=== PATIENT | female | born 1935 | race Caucasian/White ===

== ENCOUNTER 2017-12-13 14:57 | Emergency (ER) | payer MEDICARE ==
[~2017-12-13] VITALS: Ht 152.4 cm; Wt 59.0 kg
[2017-12-13 16:06] LABS: BASOPHILS ABSOLUTE AUTO 0.07 K/mm3 (0.00-0.23); BASOPHILS PERCENT AUTO 1 % (0-2); EOSINOPHILS PERCENT AUTO 3 % (0-6); Hematocrit 38.5 % (33.0-51.0); Hemoglobin 12.4 g/dL (11.5-16.0); IMMATURE GRAN ABSOLUTE AUTO 0.04 K/mm3 (0.00-0.10); IMMATURE GRAN PERCENT AUTO 1 % (0-1); LYMPHOCYTES ABSOLUTE AUTO 1.93 K/mm3 (0.84-5.20); LYMPHOCYTES PERCENT AUTO 25 % (21-46); MONOCYTES ABSOLUTE AUTO 0.52 K/mm3 (0.16-1.47); MONOCYTES PERCENT AUTO 7 % (4-13); Mean Corpuscular HGB 30.9 pg (26.0-34.0); Mean Corpuscular HGB Conc 32.2 g/dL (31.5-36.5); Mean Corpuscular Volume 96 fL (80-100); Mean Platelet Volume 9.8 fL (9.1-12.4); NEUTROPHILS ABSOLUTE AUTO 5.05 K/mm3 (1.96-9.15); NEUTROPHILS PERCENT AUTO 65 % (41-73); Platelet Count 251 K/mm3 (150-400); RDW Coefficient Variation 13.2 % (11.7-14.2); RDW Standard Deviation 46.8 fL (35.1-46.3); Red Blood Cell Count 4.01 M/mm3 (3.80-5.20); White Blood Cell Count 7.81 K/mm3 (4.00-11.30)
[2017-12-13 16:24] LABS: Alanine Aminotransfer (ALT/SGP 15 U/L (12-78); Albumin, Blood 3.5 g/dL (3.4-5.0); Alk Phos 72 U/L (50-136); Anion Gap 7 mmol/L (6-16); Aspartate Aminotrans (AST/SGOT 17 U/L (12-37); Bilirubin, Total 0.7 mg/dL (0.1-1.0); Blood Urea Nitrogen 15 mg/dL (8-24); Bun/Creatinine Ratio 20.9 (12.0-20.0); CO2, Blood 29 mmol/L (21-32); Chloride, Blood 104 mmol/L (98-108); Creatinine, Blood 0.72 mg/dL (0.40-1.00); Globulin, Blood 3.4 g/dL (2.2-4.0); Glomerular Filtration Rate >60 (60-); Glucose, Blood 138 mg/dL (70-99); Potassium, Blood 3.9 mmol/L (3.5-5.5); Sodium, Blood 140 mmol/L (136-145); Total Protein, Blood 6.9 g/dL (6.4-8.2)
[2017-12-13 17:07] LABS: Source, Urine Clean Catch
[2017-12-13 17:12] LABS: Appearance, Urine Hazy (Clear); Bilirubin, Urine Neg (Neg); Blood, Urine 3+ (Neg); Color, Urine Yellow (P-Yellow); Glucose Qualitative, Urine Neg (Neg); Ketones, Urine Neg (Neg); Leukocyte Esterase, Urine 2+ (Neg); Nitrite, Urine Neg (Neg); Protein, Urine 2+ (Neg); Urobilinogen, Urine NORM (Normal)
[2017-12-13 17:19] LABS: Bacteria Few /hpf; Red Blood Cells, Urine 0-2 /hpf (0-2); Squamous Epithelial Cells Mod /hpf (Few); White Blood Cells, Urine 0-2 /hpf (0-5)
[2017-12-13] MEDS ORDERED: TRAZ100 PO (17:52)
[2017-12-13] MEDS ORDERED: Hydrocodone-Ap1 EA23 PO (17:52)
== END 2017-12-13 19:56 | disposition home or self-care (01) ==
LOC: ER 14:57
PROVIDERS: Psychiatry & Neurology Psychiatry
DX: I10 Essential (primary) hypertension (principal); H61.21 Impacted cerumen, right ear; R51 Headache; G47.00 Insomnia, unspecified
CPT/HCPCS: 36415; 69210; 70450; 80053; 81001; 84443; 85025; 87086; 93005; 93010; 96374; 96375; 99284; J1170; J2405

== ENCOUNTER 2018-02-17 10:53 | Emergency (ER) | payer MEDICARE ==
[~2018-02-17] VITALS: Ht 149.9 cm; Wt 56.7 kg
[~2018-02-17 10:53] MED LIST: Hydrocodone-Ap1 EA23 PO; TRAZ100 PO
[2018-02-17] MEDS ORDERED: LATANOPROST2.5 ML (11:27)
[2018-02-17] MEDS ORDERED: TRAMADOL/APAP (11:29)
== END 2018-02-17 12:24 | disposition home or self-care (01) ==
LOC: ER 10:53
DX: M79.601 Pain in right arm (principal); Z79.899 Other long term (current) drug therapy; F03.90 Unspecified dementia, unspecified severity, without behavioral disturbance, psychotic disturbance, mood disturbance, and anxiety
CPT/HCPCS: 73060; 99283

== ENCOUNTER 2019-10-03 10:10 | Inpatient (IN) | payer MEDICARE, OTHER ==
[~2019-10-03] VITALS: Ht 157.5 cm; Wt 60.8 kg
[~2019-10-03 10:10] MED LIST changes: +TRAMADOL/APAP; -TRAZ100 PO
[2019-10-03 10:39] LABS: Source, Urine Catheter
[2019-10-03 10:42] LABS: Bilirubin, Urine Neg (Neg); Blood, Urine 2+ (Neg); Glucose Qualitative, Urine Neg (Neg); Ketones, Urine Neg (Neg); Leukocyte Esterase, Urine Neg (Neg); Nitrite, Urine Neg (Neg); Protein, Urine 2+ (Neg); Urobilinogen, Urine NORM (Normal)
[2019-10-03 10:49] LABS: BASOPHILS ABSOLUTE AUTO 0.06 K/mm3 (0.00-0.23); BASOPHILS PERCENT AUTO 1 % (0-2); EOSINOPHILS ABSOLUTE AUTO 0.03 K/mm3 (0.00-0.68); EOSINOPHILS PERCENT AUTO 0 % (0-6); Hematocrit 38.9 % (33.0-51.0); Hemoglobin 12.3 g/dL (11.5-16.0); IMMATURE GRAN ABSOLUTE AUTO 0.05 K/mm3 (0.00-0.10); IMMATURE GRAN PERCENT AUTO 1 % (0-1); LYMPHOCYTES ABSOLUTE AUTO 1.38 K/mm3 (0.84-5.20); LYMPHOCYTES PERCENT AUTO 14 % (21-46); MONOCYTES ABSOLUTE AUTO 0.62 K/mm3 (0.16-1.47); MONOCYTES PERCENT AUTO 6 % (4-13); Mean Corpuscular HGB 30.2 pg (26.0-34.0); Mean Corpuscular HGB Conc 31.6 g/dL (31.5-36.5); Mean Corpuscular Volume 96 fL (80-100); Mean Platelet Volume 9.9 fL (9.1-12.4); NEUTROPHILS ABSOLUTE AUTO 7.83 K/mm3 (1.96-9.15); NEUTROPHILS PERCENT AUTO 79 % (41-73); Platelet Count 260 K/mm3 (150-400); RDW Standard Deviation 45.4 fL (35.1-46.3); Red Blood Cell Count 4.07 M/mm3 (3.80-5.20); White Blood Cell Count 9.97 K/mm3 (4.00-11.30)
[2019-10-03 10:51] LABS: Appearance, Urine Hazy (Clear); Color, Urine Yellow (P-Yellow)
[2019-10-03 10:52] LABS: Bacteria Not Seen /hpf; Red Blood Cells, Urine 0-2 /hpf (0-2); Squamous Epithelial Cells Rare /hpf (Few); White Blood Cells, Urine Not Seen /hpf (0-5)
[2019-10-03 11:04] LABS: Bun/Creatinine Ratio 22.3 (12.0-20.0); Calcium, Blood 9.3 mg/dL (8.5-10.1); Creatinine, Blood 1.03 mg/dL (0.40-1.00); Potassium, Blood 4.5 mmol/L (3.5-5.5)
[2019-10-03] MEDS ORDERED: CELE200 PO (11:19)
[2019-10-03] MEDS ORDERED: TRAZ50 PO (12:39)
[2019-10-03] MEDS ORDERED: OLME20 PO (12:40)
[2019-10-03] MEDS ORDERED: LATANOPROST2.5 ML BOTHEYES (12:40)
[2019-10-03] MEDS ORDERED: Mobic15 MG PO (12:40)
[2019-10-03] MEDS ORDERED: Seroquel Xr50 MG PO (12:41)
[2019-10-03] MEDS ORDERED: MICROZIDE12.5 M1 PO (12:41)
[2019-10-03] MEDS ORDERED: QUET25 PO (12:41)
--- NOTE | 2019-10-03 15:29 | NUR ---
NEW ER ADMIT PT HAD INCIDENT @ HOME MULT DAYS AGO/FAMILY IN WHICH SHE HIT HER HEAD, CT HEAD REVEAL LRG AREA OF HEMMOHRAGE. @ THIS TIME SHE IS SOMEWHAT DROWSY, LIGHT SENSITIVE, CONSTANTLY HOLDING HEAD, APPEARS PAINFUL. APHASIC, SPEECH GARBLED, NONSENSICAL. DR OLMEDO IN TO SEE HER & SPEAK W [place] FAMILY. ORDER ROXANOL, 10MG GIVEN, PT RESTING QUIETLY @ THIS TIME WITH COVERS OVER HER HEAD. DR OLMEDO STATE WILL SPEAK WITH OTHER FAMILY TO DETERMINE TX, STATE POSSIBLE COMFORT CARE. ORDER NPO w SM [facility] ICE IF PT REQUESTS. CALL PLACED TO PALLIATIVE CARE. PASTORAL CARE STOP TO CHECK ON PT/FAMILY. WILL CONTINUE TO MX.
--- NOTE | 2019-10-03 16:26 | NUR ---
Spiritual Care intial note: Called to ED to provide calm presence and dependency counselor to pt's dtr and son. Dtr, Clare, is very distraught and blames herself for talking pt shopping three days ago when injury occurred. My estimation is Clare's guilt is a manifestation of her grief, and in this regard is normal and appropriate. Son is more calm, but also tearful. Both responded well to calm asurance of care, affirmation of comfort care decision, and prayer. Pt is very sleepy. When she awakens, her speech is garbled. More family to arrive throughout the afternoon. I will continue to follow.
--- NOTE | 2019-10-03 16:58 | NUR ---
PALLIATIVE CARE IN TO MEET W MULT FAMILY MEMBERS, ANSW QUESTIONS & EXPLAIN HOSPICE/COMFORT CARE OPTIONS. PT IS RESTING QUIETLY @ THIS TIME, FAMILY STATE APPEARS COMFORTABLE. WARM BLANKETS PROVIDED.
--- NOTE | 2019-10-03 17:09 | NUR ---
Pt visit this eveing. Pt resting in bed with her eyes closed upon arrival. Pt appears comfortable with no S/S of distress at this time. Bedside nurse Armond reports administering morphine and seems to be helping Pt's pain. Pt was holding her head and appeared to be having a headache. Lots of family present during visit. Grandschildren, great grandchildren, and children present during visit. Pt's son Mikhail, son Armond, and daughter Clare present. Children report sons Pop and Lauri are on their way. Family state Pop might be MPOA but is unsure. Discussed if no MPOA established then it would be up to majority of children to decide goals of care since Pt does not have spouse. Discussed comfort care and hospice as an option. Family reports knowing philosophy of hospice. Son Armond reports due to Pt's underlying dementia and poor quality of life that all ready exist with the addition to Pt's current clinical status Pt would not want to pursue treatment. Family will consider goals of care. Spoke with bedside nurse Armond and discussed case. Palliative Care will remain available.
--- NOTE | 2019-10-03 18:15 | NUR ---
Received return phone call from Pt's son Pop. Discussed prognosis and goals of care. Pop reports he does not have MPOA. Instructed Pop majority of sibblings would have to agree on goals of care. Pop reports he would like to see his mother placed on comfort care and states he does not think his mother would want to live in current condition. No other concerns reported at this time. Arrived to Pt's room and rest of sibblings are at bedside along with other family members. Discussed conversation this RN had with Pop and his wishes for Pt to be placed on comfort care. Pt's other sons Mikhail, Armond, Lauri, and Pt daughter Clare agree with placeing Pt on comfort care. Discussed the poetential need for consideration of hospice. Family report concerns of Pt living alone. Discussed the potential need for family coming together and pitching in to help provide care for Pt. Family continues to express concerns of ability to care for Pt. Suggested one step at a time and further discussions can be made if necassary. Family report no other concerns at this time. Pt appears to be experiencing pain as evidenced by moaning and turning her head from side to side. Spoke with bedside nurse Armond and discussed family decesion for comfort care and reported Pt's pain. Called and spoke with Dr Tomas. Reported family's decison and Dr Tomas is agreeable with plan. Placed comfort care order and comfort care order set. Dr Tomas will place order for Keppra to help prevent seizures. Palliative Care will remain available for symptom management. Will place social service referral.
--- NOTE | 2019-10-04 07:04 | NUR ---
PT RESTING/SLLEPING, NO S/S PAIN/DISCOMFORT. COPPOLA CATH PATENT/DRNG. NO FAMILY @ THIS TIME. WILL MX.
--- NOTE | 2019-10-04 10:00 | NUR ---
PT AROUSED, FAMILY IN TO VISIT. FAMILY REPORT PT NODDED YES TO PAIN, MORPHINE 4MG GIVEN FOR RELIEF. PT CONTINUES APHASIC, NONSENSICAL SPEECH. RESTING QUIELTY @ THIS TIME.
--- NOTE | 2019-10-04 11:25 | NUR ---
Comfort Care Visit: Pt resting in bed with her eyes closed. Pt appears comfortable with no S/S of distress at this time. Son Armond at bedside. Armond reports when Pt is ready for discharge he can have Pt live with him. Armond reports no concerns at this time. Spoke with bedside nurse Armond and discussed case. Palliative Care will remain available.
--- NOTE | 2019-10-04 13:02 | NUR ---
PT AROUSES BRIEFLY, WHEN ASKED IF PAINFUL NODS WEAKLY YES, MORPHINE 4MG IV GIVEN. ANJUM FAMILY @ BEDSIDE. [facility]SERV IN TO SEE THEM.
--- NOTE | 2019-10-04 16:05 | NUR ---
Assumed care of patient Received report from CHERYL Leahy. Pt is on comfort care at this time. Plan is to discharge home tomorrow on Hospice to son's (Armond) home. Vargas intact and draining.
--- NOTE | 2019-10-04 16:11 | NUR ---
PT RESTING/SLEEPING, MULMel[place] FAMILY @ BEDSIDE. NO APPEARANCE OF PAIN @ THIS TIME. DR OLMEDO & LORENA CAREMANAGER HAVE BEEN IN TO SEE PT/FAMILY, DR NICHOLE PLAN FOR PT TO D/C TOMORROW TO SONS HOME ON HOSPICE.
--- NOTE | 2019-10-04 17:33 | NUR ---
Shift summary Family remains at bedside and does make patient needs known. No other changes since assumed care.
--- NOTE | 2019-10-04 17:54 | NUR ---
Spiritual Care note: Several visits with pt's family throughout the day. Family rotating in and out of room. All appear to be in acceptance of POC. Family tearful, but appropriate. Met with pt's son this evening and offered encouragement and prayer. He will be caring for his mom post-discharge. I complimented family on their love and committment to pt. Gentle adolescent counselor well recieved. Pt slept throughout visits today. She appears calm and comfortable. I will remain available.
--- NOTE | 2019-10-05 07:39 | NUR ---
EQUAL OPPORTUNITY SPECIALIST SUMMARY patient rested comfortably overnight. Last family to leave room was around 2300. morphine 1 mg given around 2200, and again around 0530 for increased restlessness and the appearance of discomfort. patient was repositioned q 2 hours, and when she appeared uncomfortable. no calls from family overnight. patient did wake once to ask where she was.
--- NOTE | 2019-10-05 10:24 | NUR ---
1000: FULL BED BATH WITH LINEN CHANGE. TWO STAFF ASSIST. PT IS NOW TURNED TO HER LEFT SIDE. CALL LIGHT NEAR, MUSIC PLAYING. PT APPEARS COMFORTABLE
--- NOTE | 2019-10-05 10:45 | NUR ---
Comfort Care Visit: Pt resting in bed with her eyes closed. Pt appears comfortable with no S/S of distress at this time. Pt's gillian Sparks at bedside. Answered questions regarding hospice and comfort medications. No other concerns reported at this time. Pt is scheduled to D/C home with hospice today. Palliative Care will remain available.
[2019-10-05] MEDS ORDERED: ACET120S PR (10:50)
[2019-10-05] MEDS ORDERED: Atropine Su0.1 MG/ML SL (10:51)
[2019-10-05] MEDS ORDERED: MORP20L PO (10:52)
--- NOTE | 2019-10-05 11:34 | NUR ---
GAVE REPORT TO [facility] MANAGER AT 1130. ALL QUESTIONS ANSWERED.
--- NOTE | 2019-10-05 11:53 | NUR ---
PATIENT WAS DISCHARGED HOME [facility]IA [facility] AT 1145.
== END 2019-10-05 11:45 | disposition hospice, home (50) | DRG 84 ==
LOC: ER 10:10 → MEDS 10:11 → ENPENDDIS 10-05 11:08 → MEDS 10-05 11:45
PROVIDERS: Emergency Medicine; ADMIT Internal Medicine Endocrinology, Diabetes & Metabolism
DX: S06.369A Traumatic hemorrhage of cerebrum, unspecified, with loss of consciousness of unspecified duration, initial encounter (principal); H35.30 Unspecified macular degeneration; Z51.5 Encounter for palliative care; Z66 Do not resuscitate; H40.9 Unspecified glaucoma; M19.90 Unspecified osteoarthritis, unspecified site; Z87.891 Personal history of nicotine dependence; E66.3 Overweight; Z68.29 Body mass index [BMI] 29.0-29.9, adult; F07.81 Postconcussional syndrome; I12.9 Hypertensive chronic kidney disease with stage 1 through stage 4 chronic kidney disease, or unspecified chronic kidney disease; N18.3 Chronic kidney disease, stage 3 (moderate); J44.9 Chronic obstructive pulmonary disease, unspecified; G31.83 Neurocognitive disorder with Lewy bodies; W18.30XA Fall on same level, unspecified, initial encounter; Y92.512 Supermarket, store or market as the place of occurrence of the external cause
CPT/HCPCS: 70450; 71045; 80048; 81001; 85025; 96361; 96374; 96375; 99285-25; G0378; J2060; J2270; J2405; J7030